=== PATIENT | female | born 1955 | race Caucasian/White ===

== ENCOUNTER 2021-11-13 06:23 | Emergency (ER) | payer MEDICARE | END 2021-11-13 08:05 | disposition home or self-care (01) | LOC: MADERS 06:23 | DX: F41.9 Anxiety disorder, unspecified (principal); I10 Essential (primary) hypertension; E11.9 Type 2 diabetes mellitus without complications; F17.210 Nicotine dependence, cigarettes, uncomplicated; Z79.899 Other long term (current) drug therapy | CPT/HCPCS: 99283 ==